=== PATIENT | male | born 1970 | race American Indian/Alaskan Native ===

== ENCOUNTER 2017-02-21 08:59 | Inpatient (IN) | payer MEDICARE ==
[2017-02-21 09:50] LABS: Anion Gap 19 mmol/L; Blood Urea Nitrogen 18 mg/dL (9-20); Calcium 8.9 mg/dL (8.4-10.2); Carbon Dioxide 27 mmol/L (22-30); Chloride 95.4 mmol/L (98-107); Glucose 388 mg/dL (75-100); Sodium 138 mmol/L (137-145)
[2017-02-21 09:53] LABS: Basophils % (Auto) 0.8 % (0.0-1.8); Eosinophils % (Auto) 1.9 % (0.0-4.3); Hematocrit 45.7 % (35.5-45.6); Hemoglobin 15.6 gm/dl (11.8-15.2); Mean Corpuscular HGB Conc 34 % (32-34); Mean Corpuscular Hemoglobin 32 pg (28-32); Mean Corpuscular Volume 94 fl (84-94); Platelet Count 213 K/mm3 (140-440); Red Blood Count 4.87 M/mm3 (3.65-5.03); Red Cell Distribution Width 12.9 % (13.2-15.2); White Blood Count 8.2 K/mm3 (4.5-11.0)
[2017-02-21 11:42] LABS: Bilirubin,Urine NEG (Negative); Blood,Urine NEG (Negative); Ketones,Urine NEG (Negative); Leukocyte Esterase,Urine NEG (Negative); Mucus,Urine FEW /HPF; Nitrite,Urine NEG (Negative); Urobilinogen,Urine < 2.0 mg/dL (<2.0)
[2017-02-21] MEDS ORDERED: K-DUR PO ONE (11:44)
[2017-02-21] MEDS ORDERED: APRESOLINE IV ONE ×2 (12:04→14:14)
[2017-02-21] MEDS ORDERED: TORADOL IV ONE (12:04)
--- NOTE | 2017-02-21 13:03 | XRay Report ---
X-ray RIGHT FOOT THREE VIEWS: 02/21/17 08:59:00 CLINICAL: Pain FINDINGS: No fracture or dislocation. Mild arthritic change. Normal soft tissues. IMPRESSION: Mild arthritis but otherwise normal.
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
[2017-02-21] MEDS ORDERED: NORMODYNE IV ONE ×2 (13:34)
[2017-02-21] MEDS ORDERED: MORPHINE IV ONE (14:46)
[2017-02-21 15:41] LABS: Urine Drugs of Abuse Note Disclamer
--- NOTE | 2017-02-21 16:08 | History and Physical Report ---
History of Present Illness Chief complaint: They sent me here from [place] History of present illness: 46 YO Male currently receiving care at [facility] [place] for Depression with HTN , CVA with RHP, DM, GERD, Testicular Cancer, Nicotine Dependence, Bipolar, Substance Abuse presents to ED for evaluation. Pt states that he has been experiencing pain in his right foot for the past month. Pt states that his last steroid injection was 5 months ago. Pt seen and evaluated in ED and found to have blood pressure of 191/137 and confusion, as well as elevated serum glucose. Pt denies fever, chills, CP, palpitation, NVD, syncope, trauma. Pt acknowledges that he has not been receiving his medications while [place]. Pt complains of plyuria, polydipsia, since being at [place]. Past History Past Medical History: cancer, diabetes, GERD, hypertension, stroke Past Surgical History: bowel surgery, Other (orchiectomy,) Social history: single, smoking. denies: alcohol abuse, prescription drug abuse , IV drug use Family history: diabetes, hypertension Medications and Allergies Allergies Allergy/AdvReac Type Severity Reaction Status Date / Time No Known Allergies Allergy Verified 02/21/17 09:09 Home Medications Medication Instructions Recorded Confirmed Last Taken Type Gabapentin [Neurontin] 300 mg PO Q8HR #30 capsule 11/16/15 Unknown Rx ALBUTEROL Inhaler [ProAir HFA 2 puff IH QID PRN #1 inhalation 04/21/16 Unknown Rx Inhaler] Azithromycin [Zithromax Z-DORA] 250 mg PO DAILY #6 tab 04/21/16 Unknown Rx HYDROcodone/APAP 5-325 [[place] 1 each PO Q6HR PRN #14 tablet 04/21/16 Unknown Rx 5/325] Review of Systems All systems: negative Constitutional: chronic pain (foot pain) Exam - Constitutional Vitals: Temp Pulse Resp BP Pulse Ox 97.5 F L 87 20 164/109 94 02/21/17 09:10 02/21/17 15:15 02/21/17 15:15 02/21/17 15:15 02/21/17 15:15 General appearance: Present: mild distress - EENT Eyes: Present: PERRL ENT: hearing intact, clear oral mucosa - Neck Neck: Present: supple, normal ROM - Respiratory Respiratory effort: normal Respiratory: bilateral: CTA - Cardiovascular Heart Sounds: Present: S1 & S2. Absent: rub, click - Extremities Extremities: pulses symmetrical, No edema - Abdominal General gastrointestinal: Present: soft, non-tender, non-distended, normal bowel sounds Male genitourinary: Present: normal - Integumentary Integumentary: Present: clear, warm, dry - Musculoskeletal Musculoskeletal: gait normal, strength equal bilaterally - Psychiatric Psychiatric: appropriate mood/affect, intact judgment & insight - Neurologic Neurologic: CNII-XII intact (confusion, with mild cognitive slowing, ), moves all extremities Results - Labs CBC & Chem 7: 02/21/17 09:17 02/21/17 09:17 Labs: Abnormal lab results 02/21/17 02/21/17 02/21/17 Range/Units 09:06 09:17 09:17 Hgb 15.6 H (11.8-15.2) gm/dl Hct 45.7 H (35.5-45.6) % RDW 12.9 L (13.2-15.2) % Lymph % (Auto) 38.0 H (13.4-35.0) % Potassium 3.0 L (3.6-5.0) mmol/L Chloride 95.4 L (98-107) mmol/L Glucose 388 H (75-100) mg/dL POC Glucose 382 H (70-105) 02/21/17 02/21/17 Range/Units 12:06 13:30 Hgb (11.8-15.2) gm/dl Hct (35.5-45.6) % RDW (13.2-15.2) % Lymph % (Auto) (13.4-35.0) % Potassium (3.6-5.0) mmol/L Chloride (98-107) mmol/L Glucose (75-100) mg/dL POC Glucose 270 H 141 H (70-105) Assessment and Plan - Patient Problems (1) Hypertensive urgency Current Visit: Yes Status: Acute Plan to address problem: Resume home medication, monitor bp q shift, Target systolic BP overnight 160- 180. (2) Hypokalemia Current Visit: Yes Status: Acute Plan to address problem: repleted, recheck bmp (3) Arthritis of foot Current Visit: Yes Status: Acute Plan to address problem: pain control, supportive care, outpatient ortho f/u. (4) Uncontrolled diabetes mellitus Current Visit: Yes Status: Acute Qualifiers: Diabetes mellitus type: type 1 Diabetes mellitus complication status: with hyperglycemia Diabetes mellitus complication detail: D Diabetic retinopathy severity: D Proliferative retinopathy type: P Diabetes mellitus macular edema: D Diabetes mellitus alf insulin use: D Laterality: L Chronic kidney disease stage: C Qualified Code(s): E10.65 - Type 1 diabetes mellitus with hyperglycemia Plan to address problem: ADA diet, insulin, accu check (5) Testicular cancer Current Visit: No Status: Chronic Qualifiers: Descendance of testis: D Laterality: L Plan to address problem: supportive care, pain control (6) Depression Current Visit: Yes Status: Acute Qualifiers: Depression Type: D Major depression recurrence: M Active/Remission status : A Major depression episode severity: M Psychotic features: P Trimester: T Plan to address problem: psych consulted. (7) DVT prophylaxis Current Visit: Yes Status: Acute
[2017-02-21] MEDS ORDERED: MILK OF MAGNESIA PO PRN (17:14)
[2017-02-21] MEDS ORDERED: DULCOLAX PR PRN (17:14)
[2017-02-21] MEDS ORDERED: DUONEB *Not for PRN Use IH (17:14)
[2017-02-21] MEDS ORDERED: TYLENOL PO PRN (17:14)
[2017-02-21] MEDS ORDERED: ZOFRAN IV PRN (17:14)
[2017-02-21] MEDS ORDERED: PROVENTIL IH PRN (17:20)
[2017-02-21] MEDS: NORCO 5/325 PO PRN (21:33)
[2017-02-21] MEDS: NEURONTIN PO SCH (21:33)
--- NOTE | 2017-02-22 04:13 | Admit Criteria Form ---
Admission Criteria Documentation: HYPERTENSION Clinical Indications for Admission to Inpatient Care ( [place]/check or initial the applicable condition/criteria) Admission is indicated for 1 or more of the following(1)(2)(3)(4)(5)(6)(7)(8)(9) (10): [ ]I. Hypertensive emergency, with evidence of acute and progressing target organ disease as indicated by 1 or more of the following: [ ]a) Hypertensive encephalopathy (e.g., confusion, altered mental status) (11) [ ]b) Cerebral infarction [ ]c) Intracranial hemorrhage [ ]d) Myocardial ischemia or infarction [ ]e) Heart failure (eg. Pulmonary edema) [ ]f) Aortic dissection [ ]g) Increased creatinine (new) with reduction of more than 50% in estimated glomerular filtration rate from baseline [ ]h) Seizure [ ]i) Papilledema [ ]j) Retinal hemorrhage [ ]k) Microangiopathic hemolytic anemia [ ]l) Other significant finding secondary to hypertension [ ]II. Adrenergic or sympathomimetic crisis (e.g., severe hypertension due to pheochromocytoma crisis, cocaine, phencyclindine, or amphetamine intoxication, or clonidine withdrawal) [ X]III. Severe hypertension (SBP greater than 180 mmHg or DBP greater than 110 mmHg or greater than the 95th percentile for age, gender, and height in pediatric patients) that cannot be controlled (e.g., to SBP less than 160 mmHg and DBP less than 100 mmHg in adults) by treatment with oral medication in emergency department or observation care (12) Extended stay beyond goal length of staymay be needed for(21)(22): [ ]a) Persistent hypertensive encephalopathy [ ]b) Continuation of pulmonary edema [ ]c) Recurring or persistent severe hypertension [ ]d) Target organ damage (eg, angina, stroke, aortic dissection) The original [employer] content created by [employer] has been revised. The portions of the content which have been revised are identified through the use of italic text or in bold, and [employer] has neither reviewed nor approved the modified material. All other unmodified content is copyright [employer]. Please see references footnoted in the original [employer] edition 2016 Admission Criteria Met: Yes
[2017-02-22] MEDS: NEURONTIN PO SCH ×3 (06:43→21:47)
[2017-02-22] MEDS ORDERED: MORPHINE IV PRN (12:38)
[2017-02-22] MEDS ORDERED: AMBIEN PO PRN (12:38)
[2017-02-22] MEDS ORDERED: D50W (25GM) IV PRN (12:43)
--- NOTE | 2017-02-22 12:45 | Progress Note ---
Assessment and Plan Assessment and plan: Patient is a 46-year-old man from [facility] for ?voluntary treatment of depression with a history of hypertension, stroke, type 2 diabetes mellitus, GERD, tobacco dependence, bipolar, substance abuse and testicular cancer who presents with right foot pain and was found to have hypertension urgency blood pressure 191/137 hence the admission. -Accelerated hypertension with urgency: Adjusted antihypertensive, added IV hydralazine when necessary and started Norvasc -Diabetes mellitus2: Add sliding scale -Chronic pains syndrome from a "right foot arthritis": Continue pain control so [place], added IV morphine for severe pain -Hypokalemia, resolved: Ordered a.m. labs Discharge once blood pressure is controlled History Interval history: Patient seen and examined. Follow up on right foot pain. Overnight uneventful. No cp, sob, n/v or severe headaches. Imaging, old records, testing, labs, nursing notes reviewed. Hospitalist Physical - Physical exam Narrative exam: GEN: WDWN, NAD, AWAKE, ALERT, ORIENTATED x 3 HEENT: NCAT, PERRL, EOMI, OP CLEAR NECK: SUPPLE, NO THYROMEGALY, NO JVD, NO LAD CVS: RRR, NORMAL S1S2 LUNGS/CHEST: CTA B, NORMAL CHEST EXPANSION B, GOOD AIR ENTRY B ABD: SOFT, NTND, GBS, NO REBOUND OR GUARDING EXT/SKIN: NO SIGNIFICANT EDEMA OR RASH, he has a bony prominence on the top of his right foot which doesn't appear to be infected or inflamed but He says is tender from arthritis MSK: FROM X 4 EXTREMITIES NEURO: CN 2-12 GROSSLY INTACT, NO FOCAL DEFICITS PSY: Anxious - Constitutional Vitals: Temp Pulse Resp BP Pulse Ox 97.7 F 79 20 171/106 95 02/22/17 08:29 02/22/17 08:29 02/22/17 08:29 02/22/17 08:29 02/22/17 07:50 Results - Labs CBC & Chem 7: 02/21/17 09:17 02/21/17 09:17 Labs: Laboratory Last Values WBC 8.2 K/mm3 (4.5-11.0) 02/21/17 09:17 RBC 4.87 M/mm3 (3.65-5.03) 02/21/17 09:17 Hgb 15.6 gm/dl (11.8-15.2) H 02/21/17 09:17 Hct 45.7 % (35.5-45.6) H 02/21/17 09:17 MCV 94 fl (84-94) 02/21/17 09:17 MCH 32 pg (28-32) 02/21/17 09:17 MCHC 34 % (32-34) 02/21/17 09:17 RDW 12.9 % (13.2-15.2) L 02/21/17 09:17 Plt Count 213 K/mm3 (140-440) 02/21/17 09:17 Lymph % (Auto) 38.0 % (13.4-35.0) H 02/21/17 09:17 [place] % (Auto) 6.5 % (0.0-7.3) 02/21/17 09: Eos % (Auto) 1.9 % (0.0-4.3) 02/21/17 09:17 Baso % (Auto) 0.8 % (0.0-1.8) 02/21/17 09: Lymph # 3.1 K/mm3 (1.2-5.4) 02/21/17 09:17 [place] # 0.5 K/mm3 (0.0-0.8) 02/21/17 09: Eos # 0.2 K/mm3 (0.0-0.4) 02/21/17 09:17 Baso # 0.1 K/mm3 (0.0-0.1) 02/21/17 09:17 Seg Neutrophils % 52.8 % (40.0-70.0) 02/21/17 09: Seg Neutrophils # 4.3 K/mm3 (1.8-7.7) 02/21/17 09:17 VBG pH 7.395 (7.320-7.420) 02/21/17 09:17 Sodium 138 mmol/L (137-145) 02/21/17 09:17 Potassium 3.0 mmol/L (3.6-5.0) L 02/21/17 09:17 Chloride 95.4 mmol/L (98-107) L 02/21/17 09:17 Carbon Dioxide 27 mmol/L (22-30) 02/21/17 09:17 Anion Gap 19 mmol/L 02/21/17 09:17 BUN 18 mg/dL (9-20) 02/21/17 09:17 Creatinine 1.5 mg/dL (0.8-1.5) 02/21/17 09: Estimated GFR > 60 ml/min 02/21/17 09: BUN/Creatinine Ratio 12.00 % 02/21/17 09:17 Glucose 388 mg/dL (75-100) H 02/21/17 09: POC Glucose 247 (70-105) H 02/21/17 21:56 Calcium 8.9 mg/dL (8.4-10.2) 02/21/17 09:17 Urine Color Yellow (Yellow) 02/21/17 11:12 Urine Turbidity Clear (Clear) 02/21/17 11:12 Urine pH 6.0 (5.0-7.0) 02/21/17 11:12 Ur Specific [place] 1.022 (1.003-1.030) 02/21/17 11:12 Urine Protein 100 mg/dl mg/dL (Negative) 02/21/17 11:12 Urine Glucose (UA) >=500 mg/dL (Negative) 02/21/17 11:12 Urine Ketones Neg mg/dL (Negative) 02/21/17 11:12 Urine Blood Neg (Negative) 02/21/17 11:12 Urine Nitrite Neg (Negative) 02/21/17 11:12 Urine Bilirubin Neg (Negative) 02/21/17 11:12 Urine Urobilinogen < 2.0 mg/dL (<2.0) 02/21/17 11:12 Ur Leukocyte Esterase Neg (Negative) 02/21/17 11:12 Urine WBC (Auto) 2.0 /HPF (0.0-6.0) 02/21/17 11:12 Urine RBC (Auto) 3.0 /HPF (0.0-6.0) 02/21/17 11:12 U Epithel Cells (Auto) 5.0 /HPF (0-13.0) 02/21/17 11:12 Hyaline Casts 35 /LPF 02/21/17 11:12 Urine Mucus Few /HPF 02/21/17 11:12 Urine Opiates Screen Presumptive negative 02/21/17 11:12 Urine Methadone Screen Presumptive negative 02/21/17 11:12 Ur Barbiturates Screen Presumptive negative 02/21/17 11:12 Ur Phencyclidine Scrn Presumptive negative 02/21/17 11:12 Ur Amphetamines Screen Presumptive negative 02/21/17 11:12 U Benzodiazepines Scrn Presumptive positive 02/21/17 11:12 Urine Cocaine Screen Presumptive negative 02/21/17 11:12 U Marijuana (THC) Screen Presumptive negative 02/21/17 11:12 Drugs of Abuse Note Disclamer 02/21/17 11:12
[2017-02-22] MEDS: APRESOLINE IV PRN ×3 (12:54→21:50)
[2017-02-22] MEDS: NORVASC PO SCH (14:25)
[2017-02-22] MEDS: NORCO 5/325 PO PRN (15:54)
[2017-02-22] MEDS: NOVOLOG SUB-Q SCH ×2 (17:17→21:49)
[2017-02-23] MEDS: NEURONTIN PO SCH (06:21)
[2017-02-23] MEDS ORDERED: K-DUR PO ONE (08:00)
[2017-02-23] MEDS ORDERED: APRESOLINE PO SCH (08:00)
[2017-02-23 08:46] LABS: Hemoglobin 15.6 gm/dl (11.8-15.2); Mean Corpuscular HGB Conc 34 % (32-34); Mean Corpuscular Hemoglobin 32 pg (28-32); Mean Corpuscular Volume 94 fl (84-94); Platelet Count 216 K/mm3 (140-440); Red Blood Count 4.87 M/mm3 (3.65-5.03); Red Cell Distribution Width 13.2 % (13.2-15.2); White Blood Count 9.2 K/mm3 (4.5-11.0)
[2017-02-23 08:47] VITALS: BP 162/98
[2017-02-23] MEDS: NOVOLOG SUB-Q SCH (08:55)
[2017-02-23 09:01] LABS: Anion Gap 18 mmol/L; Blood Urea Nitrogen 15 mg/dL (9-20); Calcium 8.6 mg/dL (8.4-10.2); Carbon Dioxide 25 mmol/L (22-30); Chloride 97.4 mmol/L (98-107); Glucose 198 mg/dL (75-100); Potassium 3.3 mmol/L (3.6-5.0); Sodium 137 mmol/L (137-145)
[2017-02-23] MEDS: NORVASC PO SCH (09:04)
--- NOTE | 2017-02-23 10:48 | Consultation ---
History of Present Illness - Reason for Consult Consult date: 02/23/17 Reason for consult: Mental Health Evaluation Requesting physician: KATHY LANCASTER - Chief Complaint Chief complaint: They sent me here from [place] - History of Present Psychiatric Illness This is a 46-year-old Afro-Malawian male who presents to the emergency department from [facility] with complaint of right foot pain. Psychiatry was consulted to see patient for depression. Today patient is calm and cooperative during assessment. He stated a hx of chronic depression since the age of 24. He mentioned that he lost both his son and daughter () which exacerbated his depression. He stated that he became more depressed (worthless and hopeless) since their . He stated self medicating with recreational drugs (marijuana and cocaine) and alcohol (etoh) when he felt depressed. He stated over the last 10 years he would drink at least a 6 pack of beer a day. He could not recall his last drink or the last time he used recreational drugs. Prior to his admission to [facility], he was a resident at [facility] ([facility] [place] [facility]). He stated that the counseling he was receiving at the [facility] was beneficial. He denies SI/HI's, AVH's, and depression. Patient stated that he take Prozac and Seroquel. Medications and Allergies Allergies Allergy/AdvReac Type Severity Reaction Status Date / Time No Known Allergies Allergy Verified 02/21/17 09:09 Home Medications Medication Instructions Recorded Confirmed Last Taken Type ALBUTEROL Inhaler [ProAir HFA 2 puff IH QID PRN #1 inhalation 04/21/16 Unknown Rx Inhaler] Gabapentin [Neurontin] 300 mg PO Q8HR #30 capsule 02/23/17 Unknown Rx HYDROcodone/APAP 5-325 [[place] 1 each PO Q6HR PRN #10 tablet 02/23/17 Unknown Rx 5-325 mg TAB] Insulin Aspart [NovoLOG Flexpen] See Protocol SQ AC #1 pen 02/23/17 Unknown Rx Lisinopril [Zestril] 40 mg PO DAILY #30 tablet 02/23/17 Unknown Rx amLODIPine [Norvasc] 10 mg PO QDAY #30 tablet 02/23/17 Unknown Rx metFORMIN [Glucophage] 1,000 mg PO BID #60 tablet 02/23/17 Unknown Rx Active Meds: Active Medications Acetaminophen (Tylenol) 650 mg PO Q4H PRN PRN Reason: Pain MILD(1-3)/Fever >100.5/JETER Last Admin: 02/22/17 21:47 Dose: 650 mg Acetaminophen/Hydrocodone Bitart ([place] 5/325) 1 each PO Q6HR PRN PRN Reason: Pain, Moderate (4-6) Last Admin: 02/22/17 15:54 Dose: 1 each Albuterol (Proventil) 2.5 mg IH Q4HRT PRN PRN Reason: Shortness Of Breath Amlodipine Besylate (Norvasc) 10 mg PO QDAY BARRINGTON Last Admin: 02/23/17 09:04 Dose: 10 mg Bisacodyl (Dulcolax) 10 mg DE QDAY PRN PRN Reason: Constipation unrelieved by MOM Dextrose (D50w (25gm)) 50 ml IV PRN PRN PRN Reason: Hypoglycemia Gabapentin (Neurontin) 300 mg PO Q8HR B[place] Last Admin: 02/23/17 06:21 Dose: 300 mg Hydralazine HCl (Apresoline) 10 mg IV Q4HR PRN PRN Reason: Blood Pressure Last Admin: 02/22/17 21:50 Dose: 10 mg Hydralazine HCl (Apresoline) 100 mg PO TID BARIRNGTON Last Admin: 02/23/17 08:56 Dose: 100 mg Insulin Aspart (Novolog) 0 units SUB-Q ACHS BARRINGTON PRN Reason: Protocol Last Admin: 02/23/17 08:55 Dose: 4 units Magnesium Hydroxide (Milk Of Magnesia) 30 ml PO Q4H PRN PRN Reason: Constipation Morphine Sulfate (Morphine) 2 mg IV Q4H PRN PRN Reason: Pain , Severe (7-10) Last Admin: 02/22/17 18:47 Dose: 2 mg Ondansetron HCl (Zofran) 4 mg IV Q8H PRN PRN Reason: N/V unrelieved by Reglan Zolpidem Tartrate (Ambien) 5 mg PO QHS PRN PRN Reason: Sleep Last Admin: 02/22/17 21:49 Dose: 5 mg Past psychiatric history - Past Medical History Past Medical History: diabetes, hypertension Past Surgical History: No surgical history - past Psychiatric treatment and history Psych: Depression psychiatric treatment history: Patient has been inpatient at [facility]. Mother dx with bipolar - Social History Social history: other (GED, patient is homeless) Mental Status Exam - Vital signs Last Vital Signs Temp 97.8 F 02/23/17 07:50 Pulse 89 02/23/17 07:50 Resp 16 02/23/17 07:50 BP 162/98 02/23/17 07:50 Pulse Ox 98 02/23/17 07:50 - Exam Narrative exam: ROS: (-) depression, (-) psychosis MSE: Appearance: calm, cooperative Behavior: good eye contact Speech: regular rate and tone Mood: "pretty good" Affect: euthymic Thought Process: linear Thought Content: denies SI/HI's and AVH's Motor Activity: sitting up in bed Cognition: A/Ox 3 Insight: fair Judgment: fair Results Result Diagrams: 02/23/17 08:22 02/23/17 08:22 Abnormal lab results 02/22/17 02/22/17 02/22/17 Range/Units 06:48 12:11 16:47 Hgb (11.8-15.2) gm/dl Hct (35.5-45.6) % Potassium (3.6-5.0) mmol/L Chloride (98-107) mmol/L Glucose (75-100) mg/dL POC Glucose 192 H 167 H 193 H (70-105) 02/22/17 02/23/17 02/23/17 Range/Units 21:11 05:16 08:22 Hgb 15.6 H (11.8-15.2) gm/dl Hct 46.0 H (35.5-45.6) % Potassium (3.6-5.0) mmol/L Chloride (98-107) mmol/L Glucose (75-100) mg/dL POC Glucose 194 H 236 H (70-105) 02/23/17 Range/Units 08:22 Hgb (11.8-15.2) gm/dl Hct (35.5-45.6) % Potassium 3.3 L (3.6-5.0) mmol/L Chloride 97.4 L (98-107) mmol/L Glucose 198 H (75-100) mg/dL POC Glucose (70-105) All other labs normal. Assessment and Plan Assessment and plan: Impression: Historical Dx: Depression, Marijuana, Cocaine, and Alcohol use. Today patient is calm and cooperative during assessment. Denies SI/HI's. DDx: R/O Bipolar Recommendation/Plan: Patient can follow-up with outpatient psy services. Patient will return to [facility]. Patient has prescription for his medications. Discussed the importance to abstain from recreational drugs/ alcohol use with patient. Discussed possible suicidality/medication induced hollie reference antidepressants and possible metabolic side effects of Seroquel with patient.
--- NOTE | 2017-02-23 10:50 | Discharge Summary ---
Providers - Providers Date of Admission: 02/21/17 17:14 Attending physician: TERRY ECKERT MD 02/21/17 20:04 psychiatry consult [Consult to Mental Health] [CONS] Routine Reason For Exam: depression Place consult to:: psych Notified:: elias Phone number called:: [phone] Was contact made?: Yes If yes, spoke with:: elias Time called:: 09:14 Primary care physician: W[employer]ANT REPAIRER Hospitalization Reason for admission: hypertensive urgency Condition: Stable Hospital course: Patient is a 46-year-old man from [facility] for voluntary treatment of depression with a history of hypertension, stroke, type 2 diabetes mellitus, GERD, tobacco dependence, bipolar, substance abuse and testicular cancer who presents with right foot pain and was found to have hypertension urgency blood pressure 191/137 hence the admission. Patient was admitted to the floor and his blood pressure medications were adjusted and controlled, diabetes is treated with sliding scale insulin to be continued with metformin, patient's pain was controlled with pain medications and gabapentin. Patient came from [place] so he is going to back of there. Patient is hemodynamically stable at the time of discharge. Patient's medications were refilled. Patient's questions and concerns were answered at the bedside. Disposition: [id number]-01 TO HOME OR SELFCARE Time spent for discharge: 31 minutes - Discharge Diagnoses (1) Depression Status: Acute Qualifiers: Depression Type: D Major depression recurrence: M Active/Remission status : A Major depression episode severity: M Psychotic features: P Trimester: T (2) Hypertensive urgency Status: Acute (3) Hypokalemia Status: Acute (4) Uncontrolled diabetes mellitus Status: Acute Qualifiers: Diabetes mellitus type: type 1 Diabetes mellitus complication status: with hyperglycemia Diabetes mellitus complication detail: D Diabetic retinopathy severity: D Proliferative retinopathy type: P Diabetes mellitus macular edema: D Diabetes mellitus intermediate school teacher insulin use: D Laterality: L Chronic kidney disease stage: C Qualified Code(s): E10.65 - Type 1 diabetes mellitus with hyperglycemia Core Measure Documentation - Palliative Care Palliative Care/ Comfort Measures: Not Applicable - Core Measures Any of the following diagnoses?: none Exam - Physical Exam Narrative exam: Not in cardiopulmonary distress. The patient appeared well nourished and normally developed. Vital signs as documented. Head exam is unremarkable. No scleral icterus . Neck is without jugular venous distension, thyromegaly, or carotid bruits. Lungs are clear to auscultation. Cardiac exam reveals regular rate and Rhythm. First and second heart sounds normal. No murmurs, rubs or gallops. Abdominal exam reveals normal bowel sounds, no masses.. Extremities are nonedematous and both femoral and pedal pulses are normal. ENVIRONMENTAL DESIGNER: Alert and oriented 3. No focal weakness. - Constitutional Vitals: Temp Pulse Resp BP Pulse Ox 97.8 F 89 16 162/98 98 02/23/17 07:50 02/23/17 07:50 02/23/17 07:50 02/23/17 07:50 02/23/17 07:50 Plan Activity: no restrictions Weight Bearing Status: Full Weight Bearing Diet: low cholesterol, low salt, diabetic Follow up with: PRIMARY CARE,MD [Primary Care Provider] - 3-5 Days Prescriptions: amLODIPine [Norvasc] 10 mg PO QDAY #30 tablet Gabapentin [Neurontin] 300 mg PO Q8HR #30 capsule HYDROcodone/APAP 5-325 [[place] 5-325 mg TAB] 1 each PO Q6HR PRN #10 tablet PRN Reason: Pain Insulin Aspart [NovoLOG Flexpen] See Protocol SQ AC #1 pen Lisinopril [Zestril] 40 mg PO DAILY #30 tablet metFORMIN [Glucophage] 1,000 mg PO BID #60 tablet
== END 2017-02-23 12:00 | disposition home or self-care (01) | DRG 305 ==
LOC: ED 08:59 → 3A 17:14
PROVIDERS: ADMIT Internal Medicine; ATTEND Internal Medicine
DX: I16.0 Hypertensive urgency (principal); F17.200 Nicotine dependence, unspecified, uncomplicated; E87.6 Hypokalemia; E10.65 Type 1 diabetes mellitus with hyperglycemia; M19.90 Unspecified osteoarthritis, unspecified site; I10 Essential (primary) hypertension; K21.9 Gastro-esophageal reflux disease without esophagitis; F31.9 Bipolar disorder, unspecified; G89.4 Chronic pain syndrome; Z79.4 Long term (current) use of insulin; Z86.73 Personal history of transient ischemic attack (TIA), and cerebral infarction without residual deficits; Z85.47 Personal history of malignant neoplasm of testis; Z90.81 Acquired absence of spleen; Z90.79 Acquired absence of other genital organ(s); Z82.49 Family history of ischemic heart disease and other diseases of the circulatory system; Z83.3 Family history of diabetes mellitus
CPT/HCPCS: 36415; 80048; 80307; 81001; 82805; 82962; 85025; 85027; 96374; 96375; 96376; 99406; J0360; J1815; J1885; J2270

== ENCOUNTER 2019-02-11 07:47 | Emergency (ER) | payer MEDICARE ==
[2019-02-11] MEDS ORDERED: NACL 0.9% 1000 ML 1,000 ML IV ONE ×2 (08:20→09:18)
[2019-02-11] MEDS ORDERED: HumuLIN R IV ONE ×2 (08:20→11:18)
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
[2019-02-11 09:00] LABS: BUN/Creatinine Ratio 10; Blood Urea Nitrogen 15 mg/dL (9-20); Calcium 8.3 mg/dL (8.4-10.2); Hemolysis Index 7
[2019-02-11 09:03] LABS: Basophils % (Auto) 0.5 % (0.0-1.8); Eosinophils # (Auto) 0.2 K/mm3 (0.0-0.4); Hematocrit 38.5 % (35.5-45.6); Hemoglobin 13.5 gm/dl (11.8-15.2); Lymphocytes # (Auto) 2.6 K/mm3 (1.2-5.4); Lymphocytes % (Auto) 33.7 % (13.4-35.0); Mean Corpuscular HGB Conc 35 % (32-34); Mean Corpuscular Volume 93 fl (84-94); Monocytes # (Auto) 0.4 K/mm3 (0.0-0.8); Monocytes % (Auto) 5.1 % (0.0-7.3); Platelet Count 213 K/mm3 (140-440); Red Blood Count 4.16 M/mm3 (3.65-5.03); Red Cell Distribution Width 13.4 % (13.2-15.2)
[2019-02-11] MEDS ORDERED: K-DUR PO ONE (09:05)
[2019-02-11] MEDS ORDERED: MAGNESIUM SULFATE 2GM/50ML 2 GM/50 ML BAG IV ONE (09:40)
[2019-02-11 10:29] LABS: Bilirubin,Urine NEG (Negative); Blood,Urine NEG (Negative); Color,Urine Yellow (Yellow); Hyaline Casts,Urine 1 /LPF; Protein,Urine <15 mg/dL mg/dL (Negative); Urobilinogen,Urine < 2.0 mg/dL (<2.0); WBC,Urine < 1.0 /HPF (0.0-6.0)
[2019-02-11 12:11] VITALS: BP 163/103
== END 2019-02-11 12:12 | disposition home or self-care (01) ==
LOC: ED 07:47
DX: E11.65 Type 2 diabetes mellitus with hyperglycemia (principal); E83.42 Hypomagnesemia; E87.6 Hypokalemia; G89.29 Other chronic pain; M79.671 Pain in right foot; I10 Essential (primary) hypertension; K21.9 Gastro-esophageal reflux disease without esophagitis; M19.90 Unspecified osteoarthritis, unspecified site; F17.200 Nicotine dependence, unspecified, uncomplicated; F31.9 Bipolar disorder, unspecified; Z91.14 Patient's other noncompliance with medication regimen; Z86.73 Personal history of transient ischemic attack (TIA), and cerebral infarction without residual deficits; Z98.890 Other specified postprocedural states; Z90.81 Acquired absence of spleen; Z90.79 Acquired absence of other genital organ(s); Z79.4 Long term (current) use of insulin; Z79.899 Other long term (current) drug therapy
CPT/HCPCS: 36415; 80048; 81001; 82805; 82962; 83735; 85025; 96361; 96365; 96375; 96376; 99283; J3475; J7030; J1815

== ENCOUNTER 2019-02-21 21:49 | Emergency (ER) | payer MEDICARE ==
--- NOTE | 2019-02-21 22:25 | Event Note ---
ED Screening Note Date of service: 02/21/19 Time: 22:22 ED Screening Note: 48 y [facility] HTN has not taken his pm meds This initial assessment/diagnostic orders/clinical plan/treatment(s) is/are subject to change based on patients health status, clinical progression and re- assessment by fellow clinical providers in the ED. Further treatment and workup at subsequent clinical providers discretion. Patient/guardian urged not to elope from the ED as their condition may be serious if not clinically assessed and managed. Initial orders include:
[2019-02-21 23:05] LABS: Hematocrit 38.7 % (35.5-45.6); Hemoglobin 13.6 gm/dl (11.8-15.2); Mean Corpuscular HGB Conc 35 % (32-34); Mean Corpuscular Volume 91 fl (84-94); Platelet Count 237 K/mm3 (140-440); Red Blood Count 4.25 M/mm3 (3.65-5.03); Red Cell Distribution Width 12.9 % (13.2-15.2)
[2019-02-21 23:14] LABS: BUN/Creatinine Ratio 13; Blood Urea Nitrogen 17 mg/dL (9-20); Calcium 8.6 mg/dL (8.4-10.2); Hemolysis Index 18
[2019-02-22 00:10] LABS: Bilirubin,Urine NEG (Negative); Blood,Urine NEG (Negative); Color,Urine Straw (Yellow); Mucus,Urine FEW /HPF; Protein,Urine <15 mg/dL mg/dL (Negative); Urobilinogen,Urine < 2.0 mg/dL (<2.0); WBC,Urine < 1.0 /HPF (0.0-6.0)
[2019-02-22] MEDS ORDERED: K-DUR PO ONE (00:17)
[2019-02-22] MEDS ORDERED: NORMODYNE IV ONE (00:17)
[2019-02-22 00:33] LABS: Amphetamine Screen,Urine PRESUMPTIVE NEGATIVE; Benzodiazepines Screen,Urine PRESUMPTIVE NEGATIVE; Cannabinoid Screen,Urine PRESUMPTIVE NEGATIVE; Cocaine Screen,Urine PRESUMPTIVE NEGATIVE; Methadone Screen,Urine PRESUMPTIVE NEGATIVE; Opiate Screen,Urine PRESUMPTIVE NEGATIVE
[2019-02-22] MEDS ORDERED: HumuLIN R IV ONE (00:40)
[2019-02-22] MEDS ORDERED: NACL 0.9% 500 ML 500 ML IV ONE (00:40)
[2019-02-22] MEDS ORDERED: CATAPRES PO ONE (02:38)
[2019-02-22 02:42] LABS: Basophils % (Manual) 0 % (0.0-1.8); Eosinophils % (Manual) 0 % (0.0-4.3); Total Cells Counted 100
[2019-02-22 02:43] LABS: Large Platelets 1+; Platelet Estimate Consistent w Auto; RBC Morphology Normal
[2019-02-22 03:15] VITALS: BP 163/59
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
== END 2019-02-22 03:25 | disposition home or self-care (01) ==
LOC: ED 21:49
DX: I16.0 Hypertensive urgency (principal); E11.65 Type 2 diabetes mellitus with hyperglycemia; I10 Essential (primary) hypertension; K21.9 Gastro-esophageal reflux disease without esophagitis; F31.9 Bipolar disorder, unspecified; F12.90 Cannabis use, unspecified, uncomplicated; F14.90 Cocaine use, unspecified, uncomplicated; F17.200 Nicotine dependence, unspecified, uncomplicated; Z86.73 Personal history of transient ischemic attack (TIA), and cerebral infarction without residual deficits; Z98.890 Other specified postprocedural states; Z79.84 Long term (current) use of oral hypoglycemic drugs; Z79.899 Other long term (current) drug therapy
CPT/HCPCS: 36415; 80048; 80307; 81001; 82962; 85007; 85025; 96374; 96375; 99283; G0480; J7040; 80320; J1815